=== PATIENT | male | born 1960 | race Caucasian/White ===

== ENCOUNTER 2017-03-05 14:07 | Emergency (ER) | payer BC ==
[~2017-03-05] VITALS: Ht 177.8 cm; Wt 100.0 kg
[2017-03-05 14:15] VITALS: BP 137/81; PULSE 77; RESP 20; TEMP 98.4; O2SAT 98
[2017-03-05 14:33] VITALS: O2SAT 98
[2017-03-05 14:39] LABS: AUTOMATED NEUTROPHIL # 4.6 TH/MM3 (1.8-7.7); BASOPHIL % 0.5 % (0.0-2.0); EOSINOPHIL # 0.1 TH/MM3 (0-0.4); EOSINOPHIL % 1.2 % (0.0-4.0); HEMATOCRIT 44.8 % (39.0-51.0); HEMO FLAGS DIFF FINAL; LYMPH % 24.6 % (9.0-44.0); LYMPHOCYTE # 1.8 TH/MM3 (1.0-4.8); MEAN CELL VOLUME 85.3 FL (80.0-100.0); MEAN CORPUSCULAR HEMOGLOBIN 28.1 PG (27.0-34.0); MEAN CORPUSCULAR HGB CONC 32.9 % (32.0-36.0); MONO % 11.2 % (0.0-8.0); NEUT % 62.5 % (16.0-70.0); PLATELET COUNT 239 TH/MM3 (150-450); RED BLOOD COUNT 5.25 MIL/MM3 (4.50-5.90); RED CELL DISTRIBUTION WIDTH 14.3 % (11.6-17.2); WHITE BLOOD COUNT 7.3 TH/MM3 (4.0-11.0)
[2017-03-05] MEDS ORDERED: METO50TA PO (14:41)
[2017-03-05] MEDS ORDERED: VENL75TA PO (14:41)
[2017-03-05] MEDS ORDERED: ROSU10 PO (14:41)
[2017-03-05] MEDS ORDERED: TRIL150T PO (14:41)
[2017-03-05] MEDS ORDERED: TRAZ50TA12 PO (14:41)
[2017-03-05] MEDS ORDERED: XANA1TAB2 PO (14:41)
[2017-03-05] MEDS ORDERED: ASPI81CH3 CHEW (14:41)
[2017-03-05] MEDS ORDERED: PLAV75TA29 PO (14:41)
[2017-03-05 14:46] LABS: CHLORIDE 106 MEQ/L (98-107); POTASSIUM 3.5 MEQ/L (3.5-5.1); SODIUM (NA) 142 MEQ/L (136-145)
[2017-03-05 14:50] LABS: ANION GAP 7 MEQ/L (5-15); BICARBONATE 29.4 MEQ/L (21.0-32.0)
[2017-03-05 14:51] LABS: BLOOD UREA NITROGEN 14 MG/DL (7-18)
[2017-03-05 14:53] LABS: ALT (GPT) 43 U/L (12-78); AST (GOT) 31 U/L (15-37)
[2017-03-05 14:54] LABS: GLOMERULAR FILTRATION RATE 57 ML/MIN (>89)
--- NOTE | 2017-03-05 14:54 | PD ---
HPI Chief Complaint: Numbness/Tingling Time Seen by Provider: 14:09 Travel History International Travel<30 days: No Contact w/Intl Traveler<30days: No Traveled to known affect area: No History of Present Illness HPI 56 y/o male presents with numbness and swelling to his right upper face that he noticed this morning when he woke up. He denies any trauma. He denies any other concurrent complaints. He states he is visiting here from [place]. He is here with his daughter Duration:this morning Location: right face Quality: tingling Severity: isolated Context: h/o aneurysm Timing:constant Modifying Factors:None Associated sign and symptoms:None PFSH Past Medical History Depression: Yes High Cholesterol: Yes Cerebrovascular Accident: Yes Hypertension: Yes Seizures: Yes Past Surgical History Appendectomy: Yes Tonsillectomy: Yes Other Surgery: Yes (brain aneursym coiling) Social History Alcohol Use: No Tobacco Use: No Substance Use: No Allergies-Medications (Allergen,Severity, Reaction): Coded Allergies: No Known Allergies (Unverified , 03/05/17) Reported Meds & Prescriptions Reported Meds & Active Scripts Active Reported Trileptal (Oxcarbazepine) 150 Mg Tab 150 Mg PO DAILY Metoprolol Tartrate 50 Mg Tab 50 Mg PO DAILY Xanax (Alprazolam) 1 Mg Tab 1 Mg PO Q6H PRN Crestor (Rosuvastatin Calcium) 10 Mg Tab 10 Mg PO DAILY Effexor (Venlafaxine HCl) 75 Mg Tab 75 Mg PO DAILY Trazodone (Trazodone HCl) 50 Mg Tab 100 Mg PO HS Aspirin 81 Low Dose (Aspirin) 81 Mg Chew 81 Mg CHEW DAILY Plavix (Clopidogrel Bisulfate) 75 Mg Tab 75 Mg PO DAILY Review of Systems Except as stated in HPI: all other systems reviewed are Neg Physical Exam Narrative GENERAL: Well-nourished, well-developed patient. SKIN: Warm and dry. HEAD: Right infraorbital swelling and mild ecchymosis noted EYES: No injection or drainage. Pupils equal ENT: No nasal drainage noted. NECK: Supple, trachea midline. No meningeal signs CARDIOVASCULAR: Regular rate and rhythm RESPIRATORY: Breath sounds equal bilaterally at apices. No accessory muscle use. GASTROINTESTINAL: Abdomen soft, non-tender, nondistended. EXTREMITIES: No edema. NEUROLOGICAL: Awake and alert. Motor and sensory grossly within normal limits. Normal speech. 5 out of 5 in all 4 extremities Data Data Last Documented VS Vital Signs Date Time Temp Pulse Resp B/P Pulse Ox O2 Delivery O2 Flow Rate FiO2 03/05/17 14:34 98 Room Air 03/05/17 14:15 98.4 77 20 137/[address] Brain W/O Iv Contrast(Rout) (03/05/17 14:19) Complete Blood Count With Diff (03/05/17 14:19) Comprehensive Metabolic Panel (03/05/17 14:19) Act Partial Throm Time (Ptt) (03/05/17 14:19) Prothrombin Time / Inr (Pt) (03/05/17 14:19) Chest, Single Ap (03/05/17 ) Electrocardiogram (03/05/17 ) Iv Access Insert/Monitor (03/05/17 14:19) Ecg Monitoring (03/05/17 14:19) Oximetry (03/05/17 14:19) Cta Brain W Iv Contrast W 3d (03/05/17 ) Iohexol 350 Inj (Omnipaque 350 Inj) (03/05/17 16:01) Labs Laboratory Tests Test 03/05/17 14:32 White Blood Count 7.3 TH/MM3 Red Blood Count 5.25 MIL/MM3 Hemoglobin 14.7 GM/DL Hematocrit 44.8 % Mean Corpuscular Volume 85.3 FL Mean Corpuscular Hemoglobin 28.1 PG Mean Corpuscular Hemoglobin 32.9 % Concent Red Cell Distribution Width 14.3 % Platelet Count 239 TH/MM3 Mean Platelet Volume 6.7 FL Neutrophils (%) (Auto) 62.5 % Lymphocytes (%) (Auto) 24.6 % Monocytes (%) (Auto) 11.2 % Eosinophils (%) (Auto) 1.2 % Basophils (%) (Auto) 0.5 % Neutrophils # (Auto) 4.6 TH/MM3 Lymphocytes # (Auto) 1.8 TH/MM3 Monocytes # (Auto) 0.8 TH/MM3 Eosinophils # (Auto) 0.1 TH/MM3 Basophils # (Auto) 0.0 TH/MM3 CBC Comment DIFF FINAL Differential Comment Prothrombin Time 11.4 SEC Prothromb Time International 1.0 RATIO Ratio Activated Partial 28.0 SEC Thromboplast Time Sodium Level 142 MEQ/L Potassium Level 3.5 MEQ/L Chloride Level 106 MEQ/L Carbon Dioxide Level 29.4 MEQ/L Anion Gap 7 MEQ/L Blood Urea Nitrogen 14 MG/DL Creatinine 1.30 MG/DL Estimat Glomerular Filtration 57 ML/MIN Rate Random Glucose 85 MG/DL Calcium Level 9.2 MG/DL Total Bilirubin 0.4 MG/DL Aspartate Amino Transf 31 U/L (AST/SGOT) Alanine Aminotransferase 43 U/L (ALT/SGPT) Alkaline Phosphatase 67 U/L Total Protein 7.6 GM/DL Albumin 3.1 GM/DL MDM Medical Decision Making Medical Screen Exam Complete: Yes Emergency Medical Condition: Yes Medical Record Reviewed: Yes (past history confirmed) Interpretation(s) CBC & BMP Diagram 03/05/17 14:32 Last [address] 03/05/17 1419 Signed Impressions: Service Date/Time: Sunday, March 05, 2017 15:23 - CONCLUSION: 1. Aneurysm coils seen anteriorly. Right frontal lobe encephalomalacia. 2. No acute intracranial findings. 3. Right maxillary and bilateral ethmoid sinus disease. Alberto Morales MD Chest X-Ray 03/05/17 0000 Signed Impressions: Service Date/Time: Sunday, March 05, 2017 14:54 - CONCLUSION: No acute cardiopulmonary process. Fortunato Adame MD cta with aneurysm and 2 other aneurysms with coiling noted- patient given copy for follow up at home tommorrow Differential Diagnosis Bleed, aneurysm, mass, fracture Narrative Course Will check blood work, CTA and CT brain and reevaluate ed workup with no acute process on CAT scan. Aneurysm again noted and 2 priors with coiling as patient described. swelling now gone, Patient happy with care and wanting to go. Will be going home tomorrow and advised to follow on Wednesday with his specialist. Infraorbital swelling resolved. No cellulitic changes. Cannot give exact cause of his symptoms and he understands the need for outpatient testing. Given return instructions. Diagnosis Primary Impression: Facial numbness Patient Instructions: General Instructions Additional Instructions: return as needed, follow with primary wednesday Med/Other Pt SpecificInfo: No Change to Meds Disposition: DISCHARGE HOME Condition: Stable Ana Jimenez MD Mar 05, 2017 14:54
[2017-03-05 14:55] LABS: TOTAL BILIRUBIN ADULT 0.4 MG/DL (0.2-1.0)
[2017-03-05 14:56] LABS: ALKALINE PHOSPHATASE 67 U/L (45-117)
--- NOTE | 2017-03-05 15:25 | RADHPO ---
EXAM DATE/TIME: 03/05/2017 14:54 [facility] COMPARISON: No previous studies available for comparison. INDICATIONS : Chest pain and numbness on right side. MEDICAL HISTORY : None. SURGICAL HISTORY : None. ENCOUNTER: Initial ACUITY: 2 days PAIN SCORE: 4/10 LOCATION: Bilateral chest FINDINGS: A single view of the chest demonstrates the lungs to be symmetrically aerated without evidence of mas s, infiltrate or effusion. The cardiomediastinal contours are unremarkable. Osseous structures are intact. CONCLUSION: No acute cardiopulmonary process. Fortunato Adame MD on March 05, 2017 at 15:23 Board Certified Radiologist. This report was verified electronically.
[2017-03-05 15:46] LABS: PROTHROMBIN TIME - PATIENT 11.4 SEC (9.8-11.6)
[2017-03-05] MEDS ORDERED: IOHEXOL 350 MG/ML 10 ML VIAL (for RAD DIAG) IV ONE (16:01)
--- NOTE | 2017-03-05 16:07 | RADHPO ---
EXAM DATE/TIME: 03/05/2017 15:23 [facility] COMPARISON: No previous studies available for comparison. INDICATIONS : Right side facial numbness/swelling. RADIATION DOSE: 59.77 CTDIvol (mGy) MEDICAL HISTORY : Cerebrovascular disease. SURGICAL HISTORY : Aneurysm coilings ENCOUNTER: Initial ACUITY: 1 day PAIN SCALE: 0/10 LOCATION: cranial TECHNIQUE: Multiple contiguous axial images were obtained of the head. Using automated exposure control and adj ustment of the mA and/or kV according to patient size, radiation dose was kept as low as reasonably a chievable to obtain optimal diagnostic quality images. FINDINGS: CEREBRUM: Metallic coils are identified in the region of the anterior aspect of the [place]. Right-puneet ed paramidline frontal encephalomalacia. No evidence of acute intracranial hemorrhage or extra axial fluid collection. No mass effect or midline shift. Rodriguez matter white matter differentiation within no rmal limits. POSTERIOR FOSSA: The cerebellum and brainstem are intact. The 4th ventricle is midline. The cerebellopontine angle i s unremarkable. EXTRACRANIAL: Moderate severity right maxillary sinus mucosal thickening. Mild bilateral ethmoid sinus disease. SKULL: The calvaria is intact. No evidence of skull fracture. CONCLUSION: 1. Aneurysm coils seen anteriorly. Right frontal lobe encephalomalacia. 2. No acute intracranial findings. 3. Right maxillary and bilateral ethmoid sinus disease. Alberto Morales MD on March 05, 2017 at 16:03 Board Certified Radiologist. This report was verified electronically.
--- NOTE | 2017-03-05 16:30 | RADHPO ---
EXAM DATE/TIME: 03/05/2017 15:23 [facility] COMPARISON: No previous studies available for comparison. INDICATIONS : Right side facial numbness/swelling. IV CONTRAST: 73 cc Omnipaque 350 (iohexol) IV RADIATION DOSE: 43.02 CTDIvol (mGy) MEDICAL HISTORY : Cerebrovascular disease. Hypertension. SURGICAL HISTORY : Aneurysm coilings. ENCOUNTER: Initial ACUITY: 1 day PAIN SCALE: 0/10 LOCATION: cranial TECHNIQUE: Volumetric scanning was performed using a multi-row detector CT scanner. The data was post processed with a variety of visualization algorithms including full volume maximum intensity projection, multi -planar sliding thin slab reformation, curved planar reformation, and surface rendering techniques. Using automated exposure control and adjustment of the mA and/or kV according to patient size, radiat ion dose was kept as low as reasonably achievable to obtain optimal diagnostic quality images. FINDINGS: The there is a 5 mm saccular aneurysm extending superiorly and anteriorly at the right MCA trifurcati on. There is excellent visualization of the major intracranial arteries out to the second-order branch ve ssels. Metallic densities indicating coils are seen in the region of the anterior communicating artery and a t the proximal A1 segment of the right anterior cerebral artery. Absent A1 segment the left JAKE. MCA and [place] arteries are widely patent. Basilar artery and intracrani al portions of the internal carotid arteries are widely patent. CONCLUSION: 1. 5 mm aneurysm on the right at the MCA trifurcation. 2. Aneurysm coils in the region of the right anterior cerebral artery/anterior communicating artery. Alberto Morales MD on March 05, 2017 at 16:22 Board Certified Radiologist. This report was verified electronically.
[2017-03-05 17:13] VITALS: BP 138/78
--- NOTE | 2017-03-06 14:44 | EKG ---
Date Performed: 03/05/2017 Time Performed: 14:09:02 PTAGE: 56 years EKG: Sinus rhythm Normal ECG NO PREVIOUS TRACING DOCTOR: Giovany Mckeon Interpretating Date/Time 03/06/2017 14:43:20
== END 2017-03-05 17:15 | disposition home or self-care (01) ==
LOC: PHED 14:07
DX: R20.0 Anesthesia of skin (principal); R20.2 Paresthesia of skin; E78.00 Pure hypercholesterolemia, unspecified; I10 Essential (primary) hypertension; Z86.79 Personal history of other diseases of the circulatory system; Z86.69 Personal history of other diseases of the nervous system and sense organs; Z86.59 Personal history of other mental and behavioral disorders
CPT/HCPCS: 70450; 70496; 71010; 80053; 85025; 85610; 85730; 93005; 99285; Q9967